=== PATIENT | male | born 1960 | race Caucasian/White ===

== ENCOUNTER 2017-08-12 08:44 | Emergency (ER) | payer MEDICARE ==
[2011-03-10 14:26] VITALS: Ht 172.7 cm; Wt 74.8 kg
[~2017-08-12] VITALS: Ht 172.7 cm; Wt 74.8 kg
[2017-08-12 09:30] LABS: HEMATOCRIT 36.9 % (42.0-54.0); MCH 29.9 pg (26.0-34.0); MCHC 35.2 g/dL (31.0-37.0); MCV 84.8 fL (80.0-100.0); MEAN PLATELET VOLUME 10.3 fL (7.4-10.4); PLATELET COUNT 156 10x3/uL (130-400); RBC 4.35 10x6/uL (4.20-6.10); RDW 14.1 % (11.5-14.5); WBC 23.3 10x3/uL (4.8-10.8)
[2017-08-12 09:35] LABS: ALBUMIN 2.3 g/dL (3.4-5.0); ANION GAP 19.3 mmol/L (8-16); BILIRUBIN - TOTAL 0.92 mg/dL (0.2-1.3); CALCIUM 8.9 mg/dL (8.5-10.1); CARBON DIOXIDE 18.6 mmol/L (21.0-32.0); CREATININE - SERUM 3.5 mg/dL (0.6-1.3); POTASSIUM - SERUM 4.9 mmol/L (3.5-5.1); PROTEIN - SERUM 6.5 g/dL (6.4-8.2)
[2017-08-12 09:49] LABS: KETONE - SERUM NEGATIVE (NEGATIVE)
[2017-08-12 09:53] LABS: UDS - AMPHET NEGATIVE QUAL (NEGATIVE); UDS - BARB NEGATIVE QUAL (NEGATIVE); UDS - BENZO POSITIVE QUAL (NEGATIVE); UDS - COCAINE NEGATIVE QUAL (NEGATIVE); UDS - OPIATE POSITIVE QUAL (NEGATIVE); UDS - PCP NEGATIVE QUAL (NEGATIVE); UDS - THC NEGATIVE QUAL (NEGATIVE)
[2017-08-12 09:54] LABS: APPEARANCE SLT CLOUDY (CLEAR); COLOR YELLOW (YELLOW); NITRITE NEGATIVE (NEGATIVE); SPECIFIC GRAVITY 1.015 (1.005-1.020)
[2017-08-12 09:55] LABS: AMORPHOUS SEDIMENT <1+ /lpf (NONE SEEN); BACTERIA FEW /hpf (NONE SEEN); BILIRUBIN NEGATIVE (NEGATIVE); EPITHELIAL CELLS 0-5 /hpf (0-5); GLUCOSE 100 mg/dL (NEGATIVE); GRANULAR CAST RARE /lpf (NONE SEEN); KETONE NEGATIVE (NEGATIVE); MUCUS <1+ /lpf (NONE SEEN); PROTEIN 3+ mg/dL (NEGATIVE); RED CELLS - URINE 0-5 /hpf (0-5); UROBILINOGEN NORMAL (NORMAL); WHITE CELLS - URINE RARE /hpf (0-5)
[2017-08-12 10:00] LABS: MAGNESIUM - SERUM 2.5 mg/dL (1.8-2.4); PRO BNP 16440 pg/mL (0-125)
[2017-08-12 10:03] LABS: CREATINE KINASE 923 UL (21-232)
[2017-08-12 10:06] LABS: LYMPHOCYTES 8 % (15-50); MONOCYTES 6 % (2-11); NEUTROPHILS 80 % (40-80); PLATELET ESTIMATE NORMAL; ROULEAUX OCC
[2017-08-12 10:12] LABS: TROPONIN-I 1.296 ng/mL (0.000-0.060)
[2017-08-12 10:14] LABS: CKMB 6.1 U/L (0.0-3.6)
[2017-08-20 17:12] LABS: AEROBE ID Final report (()); RESULT 1 Rothia dentocariosa (())
== END 2017-08-12 12:48 | disposition other institution (70) ==
LOC: D.ER 08:44 → D.ICU 10:51 → D.ER 12:48
PROVIDERS: Emergency Medicine
DX: R41.82 Altered mental status, unspecified (principal); E86.0 Dehydration; A41.9 Sepsis, unspecified organism; N17.9 Acute kidney failure, unspecified; I25.10 Atherosclerotic heart disease of native coronary artery without angina pectoris; Z95.2 Presence of prosthetic heart valve; R00.0 Tachycardia, unspecified; I45.10 Unspecified right bundle-branch block; I10 Essential (primary) hypertension

== ENCOUNTER 2017-08-25 10:51 | Emergency (ER) | payer MEDICARE ==
[2011-03-10 14:26] VITALS: BMI 30.4
== END 2017-08-25 14:42 ==
LOC: D.ER 10:51
DX: R41.82 Altered mental status, unspecified (principal); I25.10 Atherosclerotic heart disease of native coronary artery without angina pectoris; I10 Essential (primary) hypertension; Z86.73 Personal history of transient ischemic attack (TIA), and cerebral infarction without residual deficits

== ENCOUNTER 2017-08-30 05:08 | Emergency (ER) | payer MEDICARE ==
[2011-03-10 14:26] VITALS: BMI 30.4
== END 2017-08-30 06:40 | disposition home or self-care (01) ==
LOC: D.ER 05:08
DX: T82.898A Other specified complication of vascular prosthetic devices, implants and grafts, initial encounter (principal); I63.9 Cerebral infarction, unspecified; I25.10 Atherosclerotic heart disease of native coronary artery without angina pectoris; I10 Essential (primary) hypertension

== ENCOUNTER 2017-08-30 13:40 | Outpatient (CLI) | payer MEDICARE, BC ==
[2011-03-10 14:26] VITALS: BMI 30.4
== END 2017-08-30 16:10 | disposition home or self-care (01) ==
LOC: D.OPS 13:40
DX: T82.898A Other specified complication of vascular prosthetic devices, implants and grafts, initial encounter (principal)

== ENCOUNTER 2017-09-03 14:56 | Outpatient (CLI) | payer MEDICARE, BC ==
[2011-03-10 14:26] VITALS: BMI 30.4
== END 2017-09-03 17:00 | disposition home or self-care (01) ==
LOC: D.OPS 14:56
DX: B96.89 Other specified bacterial agents as the cause of diseases classified elsewhere (principal); Z79.2 Long term (current) use of antibiotics

== ENCOUNTER 2017-10-13 23:30 | Emergency (ER) | payer MEDICARE, BC ==
[2011-03-10 14:26] VITALS: BMI 30.4
[2017-10-14 00:11] LABS: BASOPHILS 0.4 % (0-2); EOSINOPHILS 9.9 % (0-7); HEMATOCRIT 31.2 % (42.0-54.0); HEMOGLOBIN 10.2 g/dL (13.5-17.5); IMMATURE GRANULOCYTES 0.4 % (0-5); LYMPHOCYTES 18.7 % (15-50); MCH 29.1 pg (26.0-34.0); MCHC 32.7 g/dL (31.0-37.0); MCV 88.9 fL (80.0-100.0); MEAN PLATELET VOLUME 9.2 fL (7.4-10.4); MONOCYTES 7.3 % (2-11); NEUTROPHILS 63.3 % (40-80); RBC 3.51 10x6/uL (4.20-6.10); RDW 15.1 % (11.5-14.5); WBC 9.6 10x3/uL (4.8-10.8)
[2017-10-14 00:19] LABS: PLATELET COUNT 211 10x3/uL (130-400)
[2017-10-14 00:32] LABS: ALBUMIN 3.2 g/dL (3.4-5.0); ALKALINE PHOSPHATASE 120 U/L (46-116); ALT (SGPT) 17 U/L (10-68); BILIRUBIN - TOTAL 0.37 mg/dL (0.2-1.3); CALC OSMOLALITY 284 mosm/kg (275-300); CALCIUM 8.6 mg/dL (8.5-10.1); CARBON DIOXIDE 22.3 mmol/L (21.0-32.0); CHLORIDE - SERUM 100 mmol/L (98-107); CREATININE - SERUM 3.2 mg/dL (0.6-1.3); GLUCOSE 184 mg/dL (74-106); POTASSIUM - SERUM 5.7 mmol/L (3.5-5.1); PROTEIN - SERUM 7.6 g/dL (6.4-8.2); SODIUM 132 mmol/L (136-145); UREA NITROGEN 54 mg/dL (7-18); eGFR NON AFRICAN AMERICAN 21 mL/min (90-120)
[2017-10-14 00:43] LABS: CHOLESTEROL, TOTAL 148 mg/dL (0-200); CKMB 1.1 U/L (0.0-3.6); CREATINE KINASE 24 UL (21-232); HDL CHOLESTEROL 37 mg/dL (32-96); LDL CHOLESTEROL 73 mg/dL (0-100); TRIGLYCERIDE 191 mg/dL (30-200)
[2017-10-14 00:44] LABS: TROPONIN-I < 0.017 ng/mL (0.000-0.060)
== END 2017-10-14 01:50 | disposition home or self-care (01) ==
LOC: D.ER 23:30
PROVIDERS: Emergency Medicine
DX: R07.9 Chest pain, unspecified (principal); I25.10 Atherosclerotic heart disease of native coronary artery without angina pectoris; D64.9 Anemia, unspecified; N28.9 Disorder of kidney and ureter, unspecified; E87.5 Hyperkalemia; Z86.73 Personal history of transient ischemic attack (TIA), and cerebral infarction without residual deficits; I10 Essential (primary) hypertension; Z95.2 Presence of prosthetic heart valve; I45.10 Unspecified right bundle-branch block

== ENCOUNTER 2017-11-30 08:37 | Emergency (ER) | payer MEDICARE, BC ==
[2011-03-10 14:26] VITALS: BMI 30.4
[2017-11-30 09:47] LABS: BASOPHILS 0.6 % (0-2); EOSINOPHILS 7.5 % (0-7); HEMATOCRIT 37.1 % (42.0-54.0); HEMOGLOBIN 11.5 g/dL (13.5-17.5); IMMATURE GRANULOCYTES 0.3 % (0-5); MCH 28.3 pg (26.0-34.0); MCV 91.4 fL (80.0-100.0); MEAN PLATELET VOLUME 11.7 fL (7.4-10.4); MONOCYTES 8.1 % (2-11); NEUTROPHILS 57.5 % (40-80); PLATELET COUNT 175 10x3/uL (130-400); RBC 4.06 10x6/uL (4.20-6.10); RDW 15.7 % (11.5-14.5); WBC 7.2 10x3/uL (4.8-10.8)
[2017-11-30 10:41] LABS: ANION GAP 16.5 mmol/L (8-16); BILIRUBIN - TOTAL 0.3 mg/dL (0.2-1.3); CALCIUM 8.2 mg/dL (8.5-10.1); CARBON DIOXIDE 22.9 mmol/L (21.0-32.0); CREATININE - SERUM 4.2 mg/dL (0.6-1.3); POTASSIUM - SERUM 5.4 mmol/L (3.5-5.1); PROTEIN - SERUM 6.8 g/dL (6.4-8.2)
== END 2017-11-30 13:00 ==
LOC: D.ER 08:37
PROVIDERS: Emergency Medicine
DX: R10.9 Unspecified abdominal pain (principal); N28.9 Disorder of kidney and ureter, unspecified; R18.8 Other ascites; E87.5 Hyperkalemia; D64.9 Anemia, unspecified; F17.200 Nicotine dependence, unspecified, uncomplicated; I25.10 Atherosclerotic heart disease of native coronary artery without angina pectoris; Z86.73 Personal history of transient ischemic attack (TIA), and cerebral infarction without residual deficits; I10 Essential (primary) hypertension